=== PATIENT | male | born 1955 | race Caucasian/White ===

== ENCOUNTER 2021-10-10 19:45 | Emergency (ER) | payer BC ==
[2021-10-10] MEDS ORDERED: Cyclobenzaprine 10 MG Tab PO ONE (19:46)
[2021-10-10] MEDS ORDERED: Acetaminophen/HYDROcodone 325-10 MG Tab PO ONE (19:46)
[2021-10-10] MEDS ORDERED: Iopamidol 612 MG/ML 100 ML Bottle IVPUSH ONE (20:40)
[2021-10-10 20:45] LABS: ANION GAP 15.2 mEq/L (7-13)
[2021-10-10] MEDS ORDERED: Cyclobenzaprine 10 MG Tab ONE (22:06)
[2021-10-10] MEDS ORDERED: Acetaminophen/HYDROcodone 325-10 MG Tab ONE (22:06)
== END 2021-10-10 23:00 | disposition home or self-care (01) ==
LOC: DL.ED 19:45
DX: S32.592A Other specified fracture of left pubis, initial encounter for closed fracture (principal); S70.02XA Contusion of left hip, initial encounter; S20.212A Contusion of left front wall of thorax, initial encounter; Z88.2 Allergy status to sulfonamides; W22.8XXA Striking against or struck by other objects, initial encounter
CPT/HCPCS: 36415; 71260; 74177; 80053; 81001; 82150; 83690; 85025; 85610; 86850; 86900; 86901; 99283; 99284; A9270-GY; Q9967